=== PATIENT | male | born 1975 | race Hispanic/Latino ===

== ENCOUNTER 2016-12-16 11:06 | Emergency (ER) | payer SELFPAY ==
[~2016-12-16] VITALS: Ht 175.3 cm; Wt 92.3 kg
[2016-12-16] MEDS ORDERED: NORCO 5/3251 TABLET PO (12:37)
[2016-12-16 12:49] VITALS: BP 137/86
== END 2016-12-16 12:57 | disposition home or self-care (01) ==
LOC: EME 11:06
DX: M23.91 Unspecified internal derangement of right knee (principal)
CPT/HCPCS: 73564; 99281; 99284